=== PATIENT | female | born 1960 ===

== ENCOUNTER 2019-02-20 05:20 | Day surgery (SDC) | payer OTHER ==
[~2019-02-20 05:20] MED LIST: CALTRATE 600 +1 EACH PO; CLONAZEPAM2 M1 PO; CYMBALTA60 MG PO; GLIPIZIDE5 MG PO; LIPITOR20 MG PO; NEURONTIN600 MG PO; OMEGA-31000 MG PO; VASOTEC20 M1 PO; VITAMIN D31000 UNIT PO
== END 2019-02-20 11:35 | disposition home or self-care (01) ==
LOC: CIR.AMB 05:20
DX: C50.412 Malignant neoplasm of upper-outer quadrant of left female breast (principal)